=== PATIENT | female | born 1995 | race Hispanic/Latino ===

== ENCOUNTER 2019-05-12 00:35 | Observation (INO) | payer OTHER ==
[~2019-05-12] VITALS: Ht 157.5 cm; Wt 61.4 kg
[2019-05-12] MEDS ORDERED: ONDANSETRON 4 MG ORAL DISINTEGRATING TAB (Q0162 PER 1MG) PO ONE (01:30)
[2019-05-12] MEDS ORDERED: KETOROLAC 30 MG/ML VIAL (J1885) IV ONE (01:30)
[2019-05-12] MEDS ORDERED: MORPHINE 2 MG/ML 1ML SYRINGE (J2270) As Ordered ONE (01:56)
[2019-05-12] MEDS ORDERED: MORPHINE 2 MG/ML 1ML SYRINGE (J2270) IV ONE (02:00)
[2019-05-12] MEDS ORDERED: METAL LOCK LOOP XX ONE (02:05)
[2019-05-12] MEDS ORDERED: LIDOCAINE 1% MDV 20ML VIAL SC ONE (02:45)
[2019-05-12] MEDS ORDERED: PROPOFOL 200 MG/20 ML VIAL As Ordered ONE (02:56)
[2019-05-12] MEDS ORDERED: PROPOFOL 200 MG/20 ML VIAL IV ONE (04:00)
[2019-05-12] MEDS ORDERED: NS 1,000 ML IV ONE (04:15)
[2019-05-12 05:00] VITALS: BP 133/85
[2019-05-12 08:00] VITALS: BP 128/70
[2019-05-12] MEDS ORDERED: PERC5TAB12 PO (08:10)
--- NOTE | 2019-05-12 08:30 | HPE ---
DATE OF ADMISSION: 05/12/2019 CHIEF COMPLAINT: Bilateral wrist pain and deformity. HISTORY OF PRESENT ILLNESS: The patient fell at home coming down some stairs, falling directly onto her bilateral wrists, noticed immediate significant deformity and severe pain about her wrist joint and was brought in at that point to the emergency room. She had no other active complaints. PAST MEDICAL HISTORY: Denies. PAST SURGICAL HISTORY: Appendectomy. MEDICATIONS: Denies. ALLERGIES: None known. SOCIAL HISTORY: Denies tobacco use. She was drinking some alcohol this evening, but no problems with drug or alcohol abuse. 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 REVIEW OF SYSTEMS: No recent fevers, chills, nausea, vomiting, diarrhea, constipation, chest pain or shortness of breath. EXAMINATION: Awake, alert and oriented. She is slightly intoxicated, but in no acute distress. Cardiovascular: Regular rate and rhythm. Pulmonary: No increased work of breathing. Focused examination of her bilateral wrists: There is apex volar deformity on the left wrist. There is superficial abrasion volarly and she is fully neurovascular intact distally. On the right wrist there is a small superficial abrasion about the ulnar aspect and she has very slightly decreased sensation in the dorsum of her small middle and ring finger, otherwise fully neurovascularly intact distally. She is able to flicker her fingers on each side, certainly limited quite a bit due to pain and guarding. The ipsilateral forearm, elbow or shoulder is grossly atraumatic. X-rays of the bilateral wrists show displaced intra-articular distal radius fractures with ulnar styloid involvement as well. ASSESSMENT: Bilateral displaced wrist fractures as above. PLAN: I discussed the treatment options with the patient and she did give her verbal consent to proceed forward with a closed reduction of bilateral wrists under sedation. Given her bilateral hand injuries and also her intoxicated status, the consent was signed by the emergency room physician. The emergency room physician did provide conscious sedation. I next administered a hematoma blocks to the bilateral wrist fracture sites and followed this up with gentle closed reduction and casting with a short-arm casts. I did univalve the to allow swelling. Postreduction x-rays confirmed interval improvement in the length and alignment, still maintained apex volar deformity with intra-articular displacement as well. Upon emerging from sedation, she was much more comfortably moving her fingers and remained fully neurovascularly intact other than the slight decreased sensation on her right dorsal hand, ulnar fingers. Plan at this time is that she will be admitted for 23-hour observation and discharge planning given her significant home health needs that will need to be coordinated for her. We will go forward with surgical planning for her as well, which could be performed next week probably after discharge. Elevate and ice and monitor for signs of compartment syndrome and pain control as well.
[2019-05-12 12:00] VITALS: BP 134/67
[2019-05-12] MEDS ORDERED: PERCOCET 5MG/325MG TAB PO PRN (13:45)
[2019-05-12] MEDS: KETOROLAC 30 MG/ML VIAL (J1885) IV SCH ×2 (13:54→20:15)
[2019-05-12] MEDS: PERCOCET 5MG/325MG TAB PO PRN ×2 (15:48→21:38)
[2019-05-12 16:00] VITALS: BP 137/64
[2019-05-12 20:00] VITALS: BP 142/74
[2019-05-12 23:57] VITALS: BP 134/64
[2019-05-13] MEDS: KETOROLAC 30 MG/ML VIAL (J1885) IV SCH (02:57)
--- NOTE | 2019-05-13 07:51 | REP ---
BILATERAL WRISTS: AP and lateral views of bilateral wrists performed. On the left, there is a comminuted intra-articular fracture at the distal end of the radius, which demonstrates dorsal displacement and angulation. On the right, there is a comminuted fracture of the distal radius, which is intra-articular and demonstrates dorsal displacement and angulation. Electronically Signed by Simon Corea MD 05/13/2019 10:27 P
--- NOTE | 2019-05-13 07:53 | REP ---
BILATERAL WRISTS: AP and lateral views of bilateral wrists performed. Right wrist again demonstrates intra-articular fracture of distal radius. There is minimal dorsal angulation of the fracture with improved alignment compared to the prior exam of the same day. On the left, there is again noted an intra-articular fracture of the distal radius with mild residual dorsal displacement, with improved alignment compared with the prior exam the same day. Electronically Signed by Simon Corea MD 05/13/2019 10:27 P
[2019-05-13] MEDS: PERCOCET 5MG/325MG TAB PO PRN (08:31)
[2019-05-13 09:00] VITALS: BP 138/62
--- NOTE | 2019-05-13 14:54 | IPN ---
DATE OF SERVICE: 05/13/2019 SUBJECTIVE: Hospital day #1 bilateral wrist distal radius fractures. Progressing well with no new complaints. No new neurovascular symptoms. Feels the casts are well fitting and pain is well-controlled. OBJECTIVE: Awake, alert and oriented times three. She has been afebrile with stable vital signs. She continues have slightly decreased diminished sensation on the right hand and dorsal small ring and middle fingers. It is intact in this area. She is otherwise fully neurovascular intact in her bilateral hands and she is moving her fingers freely. The casts are well-fitting, not excessively tight. ASSESSMENT: Bilateral distal radius fractures. PLAN: Should be okay to discharge to home now. She will followup with me in the clinic tomorrow morning for repeat evaluation and planning. Continue to monitor the neurovascular status of the bilateral hands. Return promptly for any significant numbness, tingling, swelling, pain, loss of sensation or motor function or for any other concerns. Did discuss the risks of compartment syndrome and she does understand that. Overall, she appears to be stable at this time and ready for discharge. She does have a roommate at home who can assist her with that.
== END 2019-05-13 10:30 | disposition home or self-care (01) ==
LOC: M ED 00:35 → M ED INP 04:00 → M PED 05:12
DX: S52.571A Other intraarticular fracture of lower end of right radius, initial encounter for closed fracture (principal); S52.572A Other intraarticular fracture of lower end of left radius, initial encounter for closed fracture; W10.8XXA Fall (on) (from) other stairs and steps, initial encounter; Y92.098 Other place in other non-institutional residence as the place of occurrence of the external cause; F10.120 Alcohol abuse with intoxication, uncomplicated
CPT/HCPCS: 25605; 73100; 96374; 96375; 96376; 99156; 99157; 99284; J1885; J2270; Q0162

== ENCOUNTER → 2021-07-17 | Outpatient (REF) | payer OTHER ==
[~2021-07-17] MED LIST: PERC5TAB12 PO
== END ==
LOC: M WUC 20:18
PROVIDERS: ATTEND Physician Assistant
DX: N30.00 Acute cystitis without hematuria (principal)